=== PATIENT | female | born 1945 | race Caucasian/White ===

== ENCOUNTER 2023-04-12 22:59 | Emergency (ER) | payer MEDICARE, SELFPAY ==
[2023-04-12 23:04] VITALS: BP 180/90; PULSE 99; RESP 18; TEMP 36.8; O2SAT 97; BMI 28.3
--- NOTE | 2023-04-12 23:32 | ED_ITS ---
HPI - General Adult General Date Seen: 04/12/23 Chief complaint: Epistaxis/Nosebleed Stated complaint: uncontrollable Nose bleeding Time Seen by Provider: 04/12/23 23:11 History of Present Illness HPI narrative: This is a very pleasant 77-year-old female accompanied to the ER this evening by her for evaluation epistaxis coming from her right nostril. She has no history of nose bleeds. She is not anticoagulated or on any anti-platelet agents. She was scratching her nose this evening before 10:00 p.m. when she has started suffering fairly brisk dark red venous bleeding from her right nostril. She had difficulty controlling the bleeding at home displayed going to her bathroom, tipping her head forward, and applying direct pressure. Bleeding was fairly continuous so she had her drove here to the ER. By the time they arrived to triage bleeding seemed to slow down and now has stopped. She has no other recent unusual bleeding or bruising. No lightheadedness or weakness or symptoms of blood loss. She is not anticoagulated. Related Data Home Medications Medication Instructions Recorded Confirmed citalopram 20 mg tablet 20 mg PO DAILY 04/06/23 04/12/23 rosuvastatin 10 mg tablet 10 mg PO QPM 04/12/23 04/12/23 Previous Rx's Medication Instructions Recorded lorazepam 0.5 mg tablet (Ativan) 0.25 mg (1/2 x 0.5 mg) PO BID PRN 04/06/23 anxiety #4 tabs Allergies Allergy/AdvReac Type Severity Reaction Status Date / Time Penicillins Allergy Mild Hives Verified 04/12/23 23:06 [facility] Social History Smoking Status: Never smoker Second hand tobacco smoke exposure: No How often do you have a drink containing alcohol: never How often do you have six or more drinks on one occasion: Never AUDIT-C Alcohol total score: 0 Non-prescribed substance use: denies use Exam Narrative: Exam Narrative: Constitutional: Appears well-developed and well-nourished. Alert. Conversant. Non toxic. HENT: Head: Atraumatic. Nose: External Nose normal. Left nares-normal. Right nares. No active bleeding. There is a small site of a scab on the buccal surface of the septum just inside the opening of the nares that is likely the source for recent bleeding. No other abnormality. No visualized polyps, deviation, septal perforation. Mouth/Throat: Oral mucosa is clear and moist. no trismus. Pharynx normal. Tonsils symmetric. No tonsillar enlargement, erythema, or exudate. No posterior oropharyngeal bleeding. Eyes: Conjunctivae normal. EOM normal. Pupils equal, round, and reactive to light. No scleral icterus. Neck: Normal range of motion. Neck supple. No tracheal deviation present. Cardiovascular: Normal rate, regular rhythm. Normal cap refill Musculoskeletal: RUE: Normal range of motion. No tenderness. No deformity LUE: Normal range of motion. No tenderness. No deformity RLE: Normal range of motion. No edema. No tenderness. No deformity LLE: Normal range of motion. No edema. No tenderness. No deformity Neurological: Alert and oriented to person, place, and time. Normal strength. CN II-VII intact. No sensory deficit. GCS eye subscore is 4. GCS verbal subscore is 5. GCS motor subscore is 6. Normal coordination Skin: Skin is warm and dry. No rash noted. No pallor. Normal capillary refill. Psychiatric: Normal mood. Normal affect. Const: Vital Signs, click to edit/add: Vital Signs - 24 hr 04/12/23 23:04 Temperature 98.2 F Pulse Rate [Right Pulse Oximeter] 99 Respiratory Rate 18 Blood Pressure [Ri ght Upper Arm] 180/90 H Pulse Oximetry 97 Oxygen Delivery Me thod Room Air Course Vital Signs Vital signs: Initial Vital Signs Temperature 98.2 F 04/12/23 23:04 Temperature Source Temporal Artery Scan 04/12/23 23:04 Pulse Rate 99 04/12/23 23:04 Respiratory Rate 18 04/12/23 23:04 Blood Pressure 180/90 H 04/12/23 23:04 Blood Pressure Mean 120 H 04/12/23 23:04 Blood Pressure Position Sitting 04/12/23 23:04 Pulse Oximetry 97 04/12/23 23:04 Oxygen Delivery Method Room Air 04/12/23 23:04 Vital Signs Temperature 98.2 F 04/12/23 23:04 Pulse Rate 99 04/12/23 23:04 Respiratory Rate 18 04/12/23 23:04 Blood Pressure 180/90 H 04/12/23 23:04 Pulse Oximetry 97 04/12/23 23:04 Oxygen Delivery Method Room Air 04/12/23 23:04 Temperature 98.2 F 04/12/23 23:04 Pulse Rate 99 04/12/23 23:04 Respiratory Rate 18 04/12/23 23:04 Blood Pressure 180/90 H 04/12/23 23:04 Pulse Oximetry 97 04/12/23 23:04 Oxygen Delivery Method Room Air 04/12/23 23:04 Medical Decision Making MDM Narrative Medical decision making narrative: Very pleasant 77 year female presenting to the ER today for acute onset of epistaxis from her right nares that occurred this evening when she was scratching her nose. Bleeding had ceased by the time I did my physical evaluation. Clinical exam revealed evidence of a small scab on the mucosal surface just inside the right nostril which is likely the source for the patient's bleeding. Discussed that this point bleeding is controlled. We could pursue watchful waiting. We could also consider cautery to try to make sure there is a good scab overlying bleeding. Patient is very concerned about rebleeding so we decided to go ahead with cautery. Procedure: Nasal cauterization Anesthesia-topical anesthesia with 2 mL of 1% lidocaine with epi through mucosal atomizer. We then applied a cotton ball soaked in 1% lidocaine with epi in applied inside the patient's right nostril. Cauterization was used under direct visualization with silver nitrate. Recheck-after cautery patient had a small amount of rebleeding along the upper edge to the cauterized area. I recall her eyes again using silver nitrate. Good hemostasis achieved. Recheck-no recurrent bleeding Recheck-passed ambulation trial and no recurrent bleeding. Patient able to bend over and car pick up driver objects off the ground. No recurrent bleeding. MDM. At this point hemostasis achieved after silver nitrate cautery. At this point no indication for packing. At this point I do not think the patient needs labs or hemoglobin monitoring. She is not anticoagulated. Discussed epic status is precautions and indications for return to the ER. Questions answered. Patient and her are comfortable plan for discharge. Discharge Plan Discharge Clinical Impression: Epistaxis Patient Disposition: Home, Self-Care Condition: Stable Instructions: Nosebleed (ED) Additional Instructions: As we discussed, if your nose starts bleeding again, applied direct pressure with your fingers of with a nasal clamp for 10 minutes. If the bleeding does not stop after that, return to the ER. If you have other unusual bleeding or bruising such as unexplained bruises on her arms or legs, gum bleeding, blood in your urine, please return to the ER recheck with your doctor. Prescriptions: No Action citalopram 20 mg tablet 20 mg PO DAILY Rx Instructions: take 1 1/2 tab daily lorazepam [Ativan] 0.5 mg tablet 0.25 mg PO BID PRN (Reason: anxiety) Qty: 4 0RF rosuvastatin 10 mg tablet 10 mg PO QPM Follow Up/Referrals: Rosa Marcial MD [Primary Care Provider] - Stand Alone Forms: [facility] Info Instructions
[2023-04-12] MEDS: OXYMETAZOLINE 0.05% NASAL SPRAY 1 SPRAY NOSTRIL-B (23:45)
[2023-04-13 00:12] VITALS: BP 155/85; PULSE 85; RESP 18; TEMP 36.8; O2SAT 97
[2023-04-13 00:13] VITALS: BP 155/85; PULSE 85; RESP 18; TEMP 36.8
== END 2023-04-13 00:13 | disposition home or self-care (01) ==
LOC: ED 23:38
PROVIDERS: Emergency Provider Emergency Medicine; PCP Ophthalmology
DX: R04.0 Epistaxis (principal)
CPT/HCPCS: 30901; 99283

== ENCOUNTER 2023-10-06 13:43 | Outpatient (CLI) | payer MEDICARE, SELFPAY | END 2023-10-06 13:44 | disposition home or self-care (01) | LOC: NFLDUCREF 13:44 | PROVIDERS: PCP Ophthalmology; Visit Provider Nurse Practitioner | DX: R00.2 Palpitations (principal) | CPT/HCPCS: 84484 ==